=== PATIENT | female | born 1990 | race Caucasian/White ===

== ENCOUNTER 2018-02-24 10:48 | Day surgery (SDC) | payer OTHER ==
[~2018-02-24 10:48] MED LIST: PROPOFOL 200 MG INJ
[2018-02-24] MEDS ORDERED: CEFAZOLIN 1 GM INJ (13:01)
[2018-02-24] MEDS ORDERED: PROPOFOL 20 ML (13:01)
[2018-02-24] MEDS ORDERED: LIDOCAINE 2% (SDV) 5 ML INJ (13:01)
[2018-02-24] MEDS ORDERED: ONDANSETRON 4 MG INJ (13:02)
[2018-02-24] MEDS ORDERED: KETOROLAC 30 MG INJ (13:02)
[2018-02-24] MEDS ORDERED: FENTAnyl 50 MCG/ML VIAL (13:05)
[2018-02-24] MEDS ORDERED: FENTAnyl 50 MCG/ML VIAL IV ×2 (13:30)
[2018-02-24] MEDS ORDERED: KETOROLAC 30 MG INJ IV (13:30)
[2018-02-24] MEDS ORDERED: ONDANSETRON 4 MG INJ IV (13:30)
[2018-02-24] MEDS ORDERED: HYDROmorphONE (0.2 MG/ML) 10ML SYG IV (13:30)
[2018-02-24] MEDS ORDERED: DEXAMETHASONE 4 MG/ML 1 ML INJ (13:52)
[2018-02-24] MEDS: BUPIVACAINE 0.5% (SDV) 30 ML INJ (13:53)
[2018-02-24] MEDS: POVIDONE IODINE 10% 28.4 GM OINT (14:20)
[2018-02-24] MEDS: HYDROmorphONE (0.2 MG/ML) 10ML SYG IV (14:48)
== END 2018-02-24 16:15 | disposition home or self-care (01) ==
LOC: SDS 10:48
DX: M20.12 Hallux valgus (acquired), left foot (principal); M21.612 Bunion of left foot; E11.9 Type 2 diabetes mellitus without complications
CPT/HCPCS: 28299; 82962; 88304; 88311

== ENCOUNTER 2018-08-18 05:51 | Day surgery (SDC) | payer OTHER ==
[2018-08-18] MEDS ORDERED: DEXAMETHASONE 4 MG/ML 1 ML INJ (07:47)
[2018-08-18] MEDS ORDERED: METOCLOPRAMIDE 10 MG INJ (07:57)
[2018-08-18] MEDS ORDERED: LIDOCAINE 2% (SDV) 5 ML INJ (07:57)
[2018-08-18] MEDS ORDERED: PROPOFOL 20 ML (07:57)
[2018-08-18] MEDS ORDERED: MEPERIDINE /PF (100 MG/2 ML) AMPULE (07:57)
[2018-08-18] MEDS ORDERED: ONDANSETRON 4 MG INJ (07:58)
[2018-08-18] MEDS: POVIDONE IODINE 10% 28.4 GM OINT (08:26)
[2018-08-18] MEDS: BUPIVACAINE 0.5% (SDV) 30 ML INJ (08:26)
[2018-08-18] MEDS ORDERED: CEFAZOLIN 1 GM INJ (08:58)
[2018-08-18] MEDS ORDERED: FENTAnyl 50 MCG/ML VIAL IV ×2 (09:00)
[2018-08-18] MEDS ORDERED: DIPHENHYDRAMINE 50 MG INJ IV (09:00)
[2018-08-18] MEDS ORDERED: MEPERIDINE 25 MG INJ IV (09:00)
[2018-08-18] MEDS ORDERED: MIDAZOLAM 1 MG/ML 2 ML INJ IV (09:00)
[2018-08-18] MEDS ORDERED: OXYCODONE/ACETAMINOPHEN (5/325) TAB PO ×2 (09:00)
[2018-08-18] MEDS ORDERED: EPHEDrine SULFATE 50 MG/5 ML SYG IV (09:00)
[2018-08-18] MEDS ORDERED: hydrALAzine 20 MG INJ IV (09:00)
[2018-08-18] MEDS: ONDANSETRON 4 MG INJ IV (09:26)
[2018-08-18] MEDS: FENTAnyl 50 MCG/ML VIAL IV (09:28)
[2018-08-18] MEDS: LABETALOL HCL 20MG INJ IV (09:57)
[2018-08-18] MEDS: METOCLOPRAMIDE 10 MG INJ IV (10:06)
== END 2018-08-18 11:14 | disposition home or self-care (01) ==
LOC: SDS 05:51
DX: M20.11 Hallux valgus (acquired), right foot (principal); M21.611 Bunion of right foot; E11.9 Type 2 diabetes mellitus without complications
CPT/HCPCS: 28299; 82962; 88304; 88311